=== PATIENT | male | born 1940 | race Caucasian/White ===

== ENCOUNTER 2018-01-28 16:12 | Outpatient (CLI) | payer OTHER, MEDICARE ==
[~2018-01-28] VITALS: Ht 172.7 cm; Wt 4184.5 kg
--- NOTE | ~2018-01-28 | HEMODYNAMI ---
PATIENT:VEGA CASE MEDICAL RECORD: [id number] : 44 LOCATION:[facility].2115 ADMISSION DATE: 01/28/18 Generatedon:01/29/201811:25 Patient name: VEGA CASE Patient #: [id number] SSN: : 1940 Date of study: 01/29/2018 Page: Of Hemodynamic Procedure Report Patient Data Patient Demographics Procedure consent was obtained First Name: VEGA Gender: Male Last Name: EVIE : 1940 Patient #: [id number] Age: 77 year(s) Race: Unknown Additional ID: [id number] Contact details [address]: [address] [place] [address] State: [place] City: [place] Zip code: [address] Past Medical History Allergies: No known allergies Admission Admission Data Admission Date: 01/28/2018 Admission Time: 16:12 Room #: [facility]5 Procedure Procedure Types Cath Procedure Diagnostic Procedure LHC LHC w/Coronaries PCI Procedure Coronary Stent Coronary Stent Initial Procedure Description Procedure Date Procedure Date: 01/29/2018 Procedure Start Time: 11:10 Procedure End Time: 11:25 Procedure Staff Name Function Luisito Veloz MD Performing Physician Mayte Hurley RT Monitor Waldo Romero RN Nurse Karime Ornelas RT Scrub Procedure Data Cath Procedure Fluoroscopy Diagnostic fluoroscopy Total fluoroscopy Time: 2.7 time: 2.7 min min Diagnostic fluoroscopy Total fluoroscopy dose: 760 dose: 760 mGy mGy Contrast Material Contrast Material Type Amount (ml) Isovue 300 82 Entry Location Entry Primary Successful Side Size Upsize Upsize Entry Closure Ivan ccessful Closure Location (Fr) 1 (Fr) 2 (Fr) Remarks Device Remarks Radial Right 6 Fr Mechanical artery Short Compression Estimated blood loss: 10 ml Diagnostic catheters Device Type Used For End Catheter Placement DIAGNOSTIC [place] 110cm 5 LV Angiography Fr catheter ([id number]) DIAGNOSTIC [place] 110cm 5 Left Coronary Fr catheter ([id number]) Angiography DIAGNOSTIC [place] 110cm 5 Right Coronary Fr catheter ([id number]) Angiography Procedure Complications No complications Procedure Medications Medication Administration Route Dosage Oxygen etCO2 Nasal cannula 2 l/min Heparin Flush Bag added to field 2 bags (1000units/500ml NS) 0.9% NaCl I.V. 100 ml/hr Lidocaine 2% added to field 20 Radial Cocktail added to field 1 syringe (Verapomil 2mg/Nitro 400mcg/Heparin 1500units) Fentanyl I.V. 50 mcg Versed I.V. 1 mg Fentanyl I.V. 50 mcg Versed I.V. 1 mg Radial Cocktail I.A. 1 syringe (Verapomil 2mg/Nitro 400mcg/Heparin 1500units) Heparin Bolus I.V. 4000 units Plavix P.O. 75 mg Hemodynamics Rest Heart Rate: 73 (bpm) Snapshots Pre Cath Intra NCS Post Cath Vital Signs Time Heart Resp SPO2 etCO2 NIBP (mmHg) Rhythm Pain Sedation Rate (ipm) (%) (mmHg) Status Level (bpm) 11:02:42 64 17 98 17.9 147/75(119) NSR 0 (11) 10(A) , No pain 11:07:08 61 17 100 23.9 158/72(119) NSR 0 (11) 10(A) , No pain 11:11:26 67 17 94 16.4 137/70(105) NSR 0 (11) 9(A) , No pain 11:15:44 64 17 94 28.3 127/61(87) NSR 0 (11) 9(A) , No pain 11:20:00 71 16 96 23.1 136/73(104) NSR 0 (11) 9(A) , No pain 11:23:01 71 17 96 14.9 136/81(124) NSR 0 (11) 9(A) , No pain Medications Time Medication Route Dose Verified Delivered Reason Not es Effectiveness by by 11:04:11 Oxygen etCO2 2 l/min Luisito Haas Per physician Nasal Roselia Romero RN cannula 11:04:19 Heparin Flush added 2 bags Luisito Haas used for Bag to Roselia Romero director dietetics department (1000units/500ml field NS) 11:04:27 0.9% NaCl I.V. 100 Luisito Haas Per physician ml/hr Roselia Romero RN 11:04:35 Lidocaine 2% added 20ml Luisito Haas used for to vial Roselia Romero RN procedure field 11:04:44 Radial Cocktail added 1 Luisito Haas used for (Verapomil to syringe Roselia Romero RN procedure 2mg/Nitro field 400mcg/Heparin 1500units) 11:05:26 Fentanyl I.V. 50 mcg Luisito Haas for sedation Roselia Romero RN 11:05:35 Versed I.V. 1 mg Luisito Haas for sedation Roselia Romero RN 11:10:22 Fentanyl I.V. 50 mcg Luisito Haas for sedation Roselia Romero RN 11:10:26 Versed I.V. 1 mg Luisito Haas for sedation Roselia Romero RN 11:12:49 Radial Cocktail I.A. 1 Luisito Jorge for (Verapomil syringe Roselia Veloz MD vasodilation 2mg/Nitro 400mcg/Heparin 1500units) 11:18:01 Heparin Bolus I.V. 4000 Luisito Haas for units Roselia Romero RN anticoagulation 11:21:54 Plavix P.O. 75 mg Luisito Haas for Roselia Romero RN antiplatelet therapy Procedure Log Time Note 10:49:26 Time tracking: Call back (After hours or weekends) 10:49:35 Plan of Care:Hemodynamics will remain stable., Cardiac rhythm will remain stable., Comfort level will be maintained., Respiratory function will remain adequate., Patient/ family verbilizes understanding of procedure., Procedure tolerated without complication., Recovers from procedure without complications.. 10:49:37 Waldo Romero RN sent for patient. Start room use. 11:01:29 Vital chart was started 11:02:09 Zero performed for pressure channel P1 11:02:13 Patient received from Pre/Post Procedure Room to CCL 1 Alert and oriented. Tansferred to table in Supine position. 11:02:14 Warm blankets applied, and roque hugger turned on for patient comfort. 11:02:15 Correct patient and procedure confirmed by team. 11:02:16 Signed procedure consent form obtained from patient. 11:02:17 ECG and BP/O2 sat monitors applied to patient. 11:02:18 Full Disclosure recording started 11:02:22 H&P Date Dictated: 01/29/2018 Within 30 days and on chart.. 11:02:23 Pre-procedure instructions explained to patient. 11:02:24 Pre-op teaching completed and patient verbalized understanding. 11:02:26 Family in patients room. 11:02:28 Patient NPO since Midnight. 11:02:45 Patient allergic to No known allergies 11:02:47 Is the patient allergic to Iodine/contrast media? No. 11:02:49 Is patient on blood thinner?Yes 11:02:52 ACC The patient was administered the following blood thiners within the last 24 hours: ACCPlavix 11:02:54 Patient diabetic? No. 11:03:28 Previous problem with sedation/anesthesia? No ? 11:03:29 Snore? Yes 11:03:30 Sleep apnea? Yes 11:03:31 Deviated septum? No 11:03:32 Opens mouth fully? Yes 11:03:33 Sticks out tongue? Yes 11:03:35 Airway obstruction? No ? 11:03:39 Dentures? Yes IN 11:03:55 Pre procedure: right dorsailis pedis pulse 2+ Normal; easily identifiable; not easily obliterated 11:03:56 Modified Zeb's test Ulnar < 7 seconds 11:03:58 Patient pain scale 0/10 ?. 11:04:09 IV patent on arrival in left forearm with 0.9% NaCl at O. 11:04:11 Oxygen 2 l/min etCO2 Nasal cannula was administered by Waldo Romero RN; Per physician; 11:04:13 Right Radial & Right Groin area was prepped with chlora-prep and draped in sterile fashion 11:04:14 Alarms reviewed by R. N. 11:04:15 Sharps counted by scrub and verified by R.N. 11:04:18 Use device set Radial Dx or PCI 11:04:19 Heparin Flush Bag (1000units/500ml NS) 2 bags added to field was administered by Waldo Romero RN; used for procedure; 11:04:19 ACIST Syringe (28638) opened to sterile field. 11:04:19 Medline Cath Pack ([id number]) opened to sterile field. 11:04:19 Bag Decanter (2002S) opened to sterile field. 11:04:20 DIAGNOSTIC WIRE .035 260cm J wire (130643) opened to sterile field. 11:04:20 ACIST Hand Control (05774) opened to sterile field. 11:04:21 ACIST Manifold (91192) opened to sterile field. 11:04:21 Tegaderm 4 x 4 (1626W) opened to sterile field. 11:04:22 MBrace Wrist Support ([id number]) opened to sterile field. 11:04:23 SHEATH 6FR Slender (61-6200) opened to sterile field. 11:04:27 0.9% NaCl 100 ml/hr I.V. was administered by Waldo Romero RN; Per physician; 11:04:35 Lidocaine 2% 20ml vial added to field was administered by Waldo Romero RN; used for procedure; 11:04:44 Radial Cocktail (Verapomil 2mg/Nitro 400mcg/Heparin 1500units) 1 syringe added to field was administered by Waldo Romero RN; used for procedure; 11:04:59 Final Timeout: patient, procedure, and site verified with staff and physician. All members of the team are in agreement. 11:05:01 Right Radial site verified by team. 11:05:06 Physical assessment completed. ASA score P 2 - A patient with mild systemic disease as per Luisito Veloz MD. 11:05:10 Sedation plan: IV Moderate Sedation Medication:Versed, Fentanyl 11:05:26 Fentanyl 50 mcg I.V. was administered by Waldo Romero RN; for sedation; 11:05:35 Versed 1 mg I.V. was administered by Waldo Romero RN; for sedation; 11:08:28 Zero performed for pressure channel P1 11:09:00 IV Extension Set opened to sterile field. 11:10:12 Procedure started. 11:10:16 Local anesthetic to right radial artery with Lidocaine 2% by Luisito Veloz MD.INITIAL ACCESS ONLY 11::22 Fentanyl 50 mcg I.V. was administered by Waldo Romero RN; for sedation; 11::26 Versed 1 mg I.V. was administered by Waldo Romero RN; for sedation; 11:10:53 Baseline sample Acquired. 11:12:20 A 6 Fr Short sheath was inserted into the Right Radial artery 11:12:49 Radial Cocktail (Verapomil 2mg/Nitro 400mcg/Heparin 1500units) 1 syringe I.A. was administered by Luisito Veloz MD; for vasodilation; 11:13:14 A DIAGNOSTIC [place] 110cm 5 Fr catheter ([id number]) was advanced over the wire and used for LV Angiography. 11:14:25 LV gram done using BENJAMIN 11:14:29 EF : 60 % 11:14:32 Injector settings: Ml/sec: 5, Volume: 15, 11:14:36 A DIAGNOSTIC [place] 110cm 5 Fr catheter (069640) was advanced over the wire and used for Left Coronary Angiography. 11:15:09 A DIAGNOSTIC [place] 110cm 5 Fr catheter (911668) was advanced over the wire and used for Right Coronary Angiography. 11:15:[address] [facility] PCI 11:15:37 INFLATOR Merit BasixCompak (NK5636) opened to sterile field. 11:15:41 CHOICE PT Extra Support 182cm wire ([id number]) opened to sterile field. 11:15:49 Catheter removed. 11:16:04 GUIDE 6FR EBU 3.5 catheter ([id number]) opened to sterile field. 11:17:16 6 Fr EBU 3.5 guide catheter was inserted over the wire 11:17:46 CHOICE PT ES wire advanced. 11:18:01 Heparin Bolus 4000 units I.V. was administered by Waldo Romero RN; for anticoagulation; 11:19:17 FEMSTOP Gold (M90622) opened to sterile field. 11:20:17 Place stent Inflation Number: 1 A INTEGRITY RX 3.5 x 12 stent ([id number]) was prepped and advanced across the Prox CX. The stent was deployed at 13 GIAN for 0:05 (min:sec). 11:20:31 Stent catheter was removed intact over wire. 11:20:32 Wire removed. 11:20:32 Guide catheter removed. 11:20:44 Sheath removed intact; hemostasis achieved with Mechanical Compression to the Right Radial artery. 11:20:45 Procedure ended.(Physican Out) 11:20:56 Fluoroscopy time 02.70 minutes. 11:21:00 Flurop Dose total: 760 11:21:00 Fluoroscopy dose: 760 mGy 11:21:03 Contrast amount:Isovue 300 82ml. 11:21:05 Sharps counted by scrub and verified by R.N. 11:21:08 TR band inflated with 12cc of air. 11:21:09 Insertion/operative site no bleeding no hematoma. 11:21:16 Post right radial artery:stable, clean and dry 11:21:20 Post Procedure Pulses reassessed and unchanged 11:21:22 Post-procedure physical assessment completed. ASA score P 2 - A patient with mild systemic disease as per Luisito Veloz MD. 11:21:26 Post procedure rhythm: unchanged. 11:21:29 Estimated blood loss: 10 ml 11:21:30 Post procedure instruction explained to patient.Patient verbalizes understanding. 11:21:31 Patient needs reinforcement of post procedure teaching. 11:21:54 Plavix 75 mg P.O. was administered by Waldo Romero RN; for antiplatelet therapy; 11:23:49 Procedure type changed to Cath procedure, Diagnostic procedure, LHC, LHC w/Coronaries, PCI procedure, Coronary Stent, Coronary Stent Initial 11:23:53 Procedure Complication : No complications 11:23:56 See physician's report for complete and final results. 11:24:22 TR BAND Standard ([id number]) opened to sterile field. 11:24:48 Procedure and supply charges have been captured, reviewed, submitted and are correct. 11:24:48 Vital chart was stopped 11:24:50 Report given to PCU. 11:24:53 Patient transfered to PCU with Bed. 11:25:05 Procedure ended. 11:25:05 Full Disclosure recording stopped 11:25:07 End room use (Document Last) Intervention Summary Intervention Notes Time ActionType Lesion and Equipment Action# Pressure Duration Attributes Used 11:20:17 Place stent Prox CX INTEGRITY RX 1 13 00:05 3.5 x 12 stent ([id number]) Device Usage Item Name Manufacture Quantity Catalog Number Hospital Part Current Mini mal Lot# / Charge Number Stock Stock Serial# Code ACIST Acist 1 10042 203824 596552 718565 20 Syringe Primary Data (60926) Systems Inc Medline Cath Medline 1 [id number] 549378 70283 769225 5 Pack ([id number]) Bag Decanter Microtek 1 334048 11250 283801 5 () Medical Inc. DIAGNOSTIC St Gurdeep 1 779072 504837 880336 157280 30 WIRE .035 260cm J wire (180844) ACIST Hand Acist 1 89103 754253 498896 550328 5 Control Medical (84973) Systems Inc ACIST Acist 1 08312 543271 295279 562642 5 Manifold Medical (62367) Systems Inc Tegaderm 4 x 3M 1 1626W 344780 941710 403975 5 4 (1626W) MBrace Wrist Advanced 1 140-0250-00 500692 10231 669229 5 Support Vascular (930923843) Dynamics SHEATH 6FR Terumo 1 [id number] 235854 232081 692401 5 Slender (80-1060) IV Extension Hospira 1 02621-99 947993 70847 543050 5 Set DIAGNOSTIC Terumo 1 40-9663 534931 486654 797535 5 [place] 110cm 5 Fr catheter (265381) INFLATOR Merit 1 OH1431 677782 308251 597833 15 [facility] Medical BasixCompak (ZZ4753) CHOICE PT [place] 1 [id number] 729873 011698 994048 5 Extra Scientific Support 182cm wire (2056519B5) GUIDE 6FR Medtronic 1 [id number] 524297 45597 480013 3 EBU 3.5 catheter ([id number]) FEMSTOP Gold St Gurdeep 1 Z59897 538722 890672 069498 5 (K27576) INTEGRITY RX Medtronic 1 [id number] 230989 520667 344000 5 [id number] 3.5 x 12 stent ([id number]) TR BAND Terumo 1 AHA99-MOM 584456 301999 763572 40 Standard ([id number]) Signature Audit [place] Stage Time Signature Unsigned Intra-Procedure 01/29/2018 Mayte 11:25:39 AM Counts RT(R) Signatures Monitor : Mayte Signature : Counts RT Date : Time : [facility] [address] [place] [address]
--- NOTE | ~2018-01-28 | DS ---
PATIENT:VEGA RAINEY :44 MEDICAL RECORD: [id number] DISCHARGE SUMMARY ADMISSION DATE: 01/28/18 DISCHARGE DATE: 01/29/18 DISCHARGE DIAGNOSES: 1. Unstable angina. 2. Coronary artery disease. 3. PTCA stent of left circumflex this admission with concomitant disease RCA. 4. Hypertension. 5. Hyperlipidemia. HOSPITAL COURSE: Mr. Rainey presents with anginal symptomatology, found to have 2-vessel disease of the left circumflex and RCA, underwent successful PTCA stent of the left circumflex. He was discharged home with the addition of aspirin and Plavix to his medical regimen. We will follow up with PTCA stent of the RCA next week. TRANSINT:[id number] Voice Confirmation ID: [id number] DOCUMENT ID: [id number] AMARILYS RODRIGUEZ MD CC: [id number] DICTATION DATE: 01/29/18 1126 FINANCIAL AID ADVISOR: 01/30/18 0112 DEP CLI 01/29/18 [place] [id number] [place] [address]
--- NOTE | ~2018-01-28 | HP ---
PATIENT: VEGA CASE MEDICAL RECORD: [id number] ACCOUNT: [id number] LOCATION:[facility] : 44 ADMISSION DATE: 01/28/18 PCP: No PCP HISTORY AND PHYSICAL EXAMINATION DATE OF ADMISSION: 01/29/2018 DIAGNOSES: 1. Unstable angina. 2. Coronary artery disease. 3. Hypertension. 4. Hypothyroidism, on replacement. HISTORY OF PRESENT ILLNESS: This is a gentleman with a past history of coronary artery disease, standalone PTCA in 1997, who began having more and more chest pain over the past few weeks. It escalated last night. His troponin is normal. He did not have a myocardial infarction with that. He has continued to have chest pain this morning. PHYSICAL EXAMINATION: GENERAL APPEARANCE: Well-nourished, well-developed, appears stated age. Level of distress, comfortable. PSYCHIATRIC: Mental status, alert, normal affect. Orientation, oriented to time, place and person. EYES: Lids and conjunctiva, noninjected. No discharge, no pallor. ENT: Lips, teeth, gums, normal dentition. Oropharynx, no cyanosis, no pallor. NECK: Carotid arteries, bilateral normal upstroke, no bruits, no thrills. JUGULAR VEINS: No jugular venous pressure or distention. CERVICAL LYMPH NODES: Nontender, nonenlarged. THYROID: Not enlarged. Nontender. No nodules. LUNGS: Respiratory effort, unlabored. CHEST: Normal curvature. No thoracic deformity. No chest wall tenderness. Percussion, resonant. Auscultation, clear. No wheezes, no rales, no rhonchi. CARDIOVASCULAR: Precordial exam, nondisplaced. No heaves or pericardial thrills. Rate and rhythm, regular. Heart sounds, normal S1, normal S2. No S3, no gallop, no rub. Systolic murmur, not heard. Diastolic murmur, not heard. EXTREMITIES: No cyanosis, no edema. Peripheral pulses, full and equal in all extremities, except as noted. No bruits appreciated. ABDOMEN: Soft, nondistended. Normal aorta. No bruit. Nontender. No masses. Liver, nontender, no hepatomegaly. Spleen, nontender, no splenomegaly. MUSCULOSKELETAL: No joint tenderness. No joint swelling. No erythema. NEUROLOGICAL: Normal gait, normal strength, normal tone. SKIN: Warm and dry. REVIEW OF SYSTEMS: The patient reports easy bruising but reports no swollen glands. The patient reports no fever, no night sweats, no significant weight gain, no significant weight loss. No significant exercise tolerance. The patient reports no dry eyes, no irritation, no vision change. Patient reports no difficulty hearing and no ear pain. Patient reports no frequent nose bleeds or nose and sinus problems. Patient reports on arm pain on exertion. No shortness of breath while lying down. No history of heart murmur. Patient reports no cough, no wheezing or coughing up blood. Patient reports no abdominal pain, no vomiting. Normal appetite. No diarrhea and not vomiting blood. No nausea and no constipation. Patient reports no incontinence. No difficulty urinating. No hematuria. No increased frequency. Patient reports HISTORY AND PHYSICAL [id number] CASE,GLENDALL no muscle aches. No weakness, no arthralgias, no back pain. No swelling of the extremities. Patient reports no abnormal mole, no jaundice, no rashes. Reports no loss of consciousness. No weakness and no numbness. No seizures, dizziness, or headaches. The patient reports no depression, no sleep disturbance, feeling safe in a relationship and no alcohol abuse. Patient reports on fatigue. Reports no runny nose or sinus pressure. No itching, no hives, and no frequent sneezing. OVERALL IMPRESSION: Unstable angina with a past history of coronary artery disease, most likely he has recurrent hemodynamically significant disease. We will proceed with coronary angiography. Further care depends upon findings of the angiography. TRANSINT:[id number] Voice Confirmation ID: [id number] DOCUMENT ID: [id number] AMARILYS RODRIGUEZ MD at 1520 CC: [id number] DICTATION DATE: 01/29/18 0900 LABEL SEWER: 01/29/18 1052 DEP CLI 01/29/18 [facility] [address] [place] [id number]
--- NOTE | ~2018-01-28 | OP ---
PATIENT NAME: VEGA CASE MEDICAL RECORD: [id number] :44 LOCATION:[facility] ADMISSION DATE: SURGEON: AMARILYS RODRIGUEZ MD DATE OF OPERATION: 01/29/2018 PROCEDURES: 1. PTCA and stent of left circumflex. 2. Left heart catheterization. 3. Selective coronary angiography. 4. Left ventriculogram. INDICATION: Angina and coronary artery disease. PROCEDURE IN DETAIL: After informed consent was obtained and after detailed explanation of risks, benefits as well as alternative therapies, the patient elected to proceed with angiogram and angioplasty. The right radial area was prepped and draped in normal sterile fashion. Right radial artery was cannulated via modified Seldinger technique with the placement of 6-Wolof sheath. All catheters exchanged through this sheath. FINDINGS: The left ventriculogram was performed in standard 30-degree BENJAMIN view, reveals good cardiac wall motion throughout all segments. Overall ejection fraction estimated 60%. SELECTIVE CORONARY ANGIOGRAPHY: 1. Left main is with no significant angiographic disease. 2. Left anterior descending has moderate irregularities, at least 50% stenosis in the mid vessel, but it does not appear that there is any flow limiting stenosis. 3. The left circumflex has 70+ percent stenosis at the ostium. 4. The right coronary has a 70+ percent stenosis in the mid vessel. PTCA AND STENT OF THE LEFT CIRCUMFLEX: The stent used is a 3.5 x 12-mm Integrity. Result was 0% residual stenosis. OVERALL IMPRESSION: Successful PTCA and stent of the left circumflex going from 75% initial stenosis to 0% residual. PLAN: Plan for PTCA and stent of the RCA in the near future. TRANSINT:[id number] Voice Confirmation ID: [id number] DOCUMENT ID: [id number] AMARILYS RODRIGUEZ MD at 1520 CC: [id number] DICTATION DATE: 01/29/18 1128 SUPERVISOR PAINT DEPARTMENT: 01/29/[address] [facility] CLI 01/29/18 [place] [id number]
[2018-01-28] MEDS ORDERED: FUROSEMIDE20 MG PO (16:36)
[2018-01-28] MEDS ORDERED: SYNTHROID25 MCG PO (16:37)
[2018-01-28] MEDS ORDERED: ASPIRIN81 MG PO (16:38)
[2018-01-28] MEDS ORDERED: NITROSTAT0.4 MG SL (16:38)
[2018-01-28] MEDS ORDERED: LISINOPRIL2.5 MG PO (16:38)
[2018-01-28 17:01] LABS: BASOPHILS 0.5 % (0-2); EOSINOPHILS 5.1 % (0-7); HEMATOCRIT 40.3 % (42.0-54.0); HEMOGLOBIN 14.4 g/dL (13.5-17.5); IMMATURE GRANULOCYTES 0.2 % (0-5); LYMPHOCYTES 22.1 % (15-50); MCHC 35.7 g/dL (31.0-37.0); MCV 89.6 fL (80.0-100.0); MEAN PLATELET VOLUME 9.6 fL (7.4-10.4); MONOCYTES 9.1 % (2-11); PLATELET COUNT 147 10x3/uL (130-400); WBC 6.6 10x3/uL (4.8-10.8)
[2018-01-28 18:43] LABS: ALBUMIN 3.5 g/dL (3.4-5.0); ALKALINE PHOSPHATASE 110 U/L (46-116); ALT (SGPT) 22 U/L (10-68); CALC OSMOLALITY 284 mosm/kg (275-300); CARBON DIOXIDE 25.3 mmol/L (21.0-32.0); CHLORIDE - SERUM 105 mmol/L (98-107); CREATININE - SERUM 1.1 mg/dL (0.6-1.3); GLUCOSE 89 mg/dL (74-106); POTASSIUM - SERUM 3.7 mmol/L (3.5-5.1); PROTEIN - SERUM 7.3 g/dL (6.4-8.2); SODIUM 142 mmol/L (136-145); UREA NITROGEN 20 mg/dL (7-18); eGFR NON AFRICAN AMERICAN 69 mL/min (90-120)
[2018-01-28 18:49] LABS: CREATINE KINASE 136 UL (21-232); TROPONIN-I 0.017 ng/mL (0.000-0.060)
[2018-01-28 21:32] VITALS: BP 154/93; Ht 172.7 cm; Wt 4184.5 kg
[2018-01-29] VITALS: BP 140/59
[2018-01-29 04:00] VITALS: BP 131/67
[2018-01-29 08:07] VITALS: BP 139/74
[2018-01-29 09:47] LABS: BASOPHILS 0.4 % (0-2); EOSINOPHILS 6.8 % (0-7); HEMATOCRIT 40.2 % (42.0-54.0); HEMOGLOBIN 14.2 g/dL (13.5-17.5); IMMATURE GRANULOCYTES 0.4 % (0-5); LYMPHOCYTES 19.2 % (15-50); MCH 31.8 pg (26.0-34.0); MCHC 35.3 g/dL (31.0-37.0); MCV 89.9 fL (80.0-100.0); MEAN PLATELET VOLUME 9.4 fL (7.4-10.4); MONOCYTES 7.2 % (2-11); PLATELET COUNT 131 10x3/uL (130-400); RBC 4.47 10x6/uL (4.20-6.10); WBC 5.3 10x3/uL (4.8-10.8)
[2018-01-29 09:50] LABS: CALC OSMOLALITY 282 mosm/kg (275-300); CALCIUM 8.8 mg/dL (8.5-10.1); CARBON DIOXIDE 27.3 mmol/L (21.0-32.0); CHLORIDE - SERUM 106 mmol/L (98-107); CREATININE - SERUM 0.9 mg/dL (0.6-1.3); GLUCOSE 99 mg/dL (74-106); POTASSIUM - SERUM 4.1 mmol/L (3.5-5.1); SODIUM 141 mmol/L (136-145); UREA NITROGEN 19 mg/dL (7-18); eGFR NON AFRICAN AMERICAN 87 mL/min (90-120)
[2018-01-29 11:32] VITALS: BP 124/69
[2018-01-29] MEDS ORDERED: BAYER CHEWABLE81 MG PO (14:01)
[2018-01-29] MEDS ORDERED: PLAVIX75 MG PO (14:01)
[2018-01-29 15:39] VITALS: BP 114/48
== END 2018-01-29 16:43 | disposition home or self-care (01) ==
LOC: D.ER 16:12 → D.OPS 16:12 → EDSTATUS 18:02 → D.M2 19:14 → D.OPS 01-29 16:43
PROVIDERS: Family Medicine; Internal Medicine Interventional Cardiology
DX: I25.110 Atherosclerotic heart disease of native coronary artery with unstable angina pectoris (principal); I10 Essential (primary) hypertension; E03.9 Hypothyroidism, unspecified

== ENCOUNTER 2018-01-31 02:28 | Observation (INO) | payer MEDICARE ==
[2018-01-31] VITALS (7 sets, daily range): BP systolic 93–132; BP diastolic 42–62; Ht 172.7 cm; Wt 86.2 kg
[~2018-01-31] VITALS: Ht 172.7 cm; Wt 86.2 kg
--- NOTE | ~2018-01-31 | MORECARE ---
CASE MANAGEMENT DISCHARGE SUMMARY PATIENT: VEGA CASE UNIT: [id number] ADM DATE: 01/31/18 AGE: 77 : 42 SEX: M ROOM/BED: D.2127 AUTHOR: ALEXANDER RUSSELL PHYSICIAN: REFERRING PHYSICIAN: AMARILYS RODRIGUEZ MD DATE OF SERVICE: 02/02/18 Discharge Plan Patient Name: VEGA CASE [facility] 1940 Planned Disposition: Home Anticipated Discharge Date: 01/31/18 Discharge Date: 01/31/2018 Expected LOS: 1 Initial Reviewer: [email or web address] Initial Review Date: 02/02/2018 Generated: 02/02/18 8:21 am Patient Name: VEGA CASE Page [id number] at 0722 All edits/amendments must be made on the electronic document DICTATION DATE: 02/02/18720 BUTTON RECLAIMER: PHILIP 02/02/18720 RPT#: [id number] DC DATE:01/31/18 STATUS: DIS IN [facility] [address] [place] [address] END OF REPORT
--- NOTE | ~2018-01-31 | HP ---
PATIENT: VEGA RAINEY MEDICAL RECORD: [id number] ACCOUNT: [id number] LOCATION:D. D.2127 : 44 ADMISSION DATE: 01/31/18 PCP: No PCP HISTORY AND PHYSICAL EXAMINATION ADMITTING DIAGNOSES: 1. Angina. 2. Coronary artery disease. 3. Recent percutaneous transluminal coronary angioplasty stent of the left circumflex with concomitant disease to right coronary artery. 4. Hypertension. HISTORY OF PRESENT ILLNESS: Mr. Rainey presents with recurrent angina. He presented earlier in the week, found to have disease of the circumflex and RCA, underwent successful PTCA stent of the circumflex, was set to come back on the for RCA PTCA stent. He had continued angina and came through the Emergency Room. PHYSICAL EXAMINATION: GENERAL APPEARANCE: Well-nourished, well-developed, appears stated age. Level of distress, comfortable. PSYCHIATRIC: Mental status, alert, normal affect. Orientation, oriented to time, place and person. EYES: Lids and conjunctiva, noninjected. No discharge, no pallor. ENT: Lips, teeth, gums, normal dentition. Oropharynx, no cyanosis, no pallor. NECK: Carotid arteries, bilateral normal upstroke, no bruits, no thrills. JUGULAR VEINS: No jugular venous pressure or distention. CERVICAL LYMPH NODES: Nontender, nonenlarged. THYROID: Not enlarged. Nontender. No nodules. LUNGS: Respiratory effort, unlabored. CHEST: Normal curvature. No thoracic deformity. No chest wall tenderness. Percussion, resonant. Auscultation, clear. No wheezes, no rales, no rhonchi. CARDIOVASCULAR: Precordial exam, nondisplaced. No heaves or pericardial thrills. Rate and rhythm, regular. Heart sounds, normal S1, normal S2. No S3, no gallop, no rub. Systolic murmur, not heard. Diastolic murmur, not heard. EXTREMITIES: No cyanosis, no edema. Peripheral pulses, full and equal in all extremities, except as noted. No bruits appreciated. ABDOMEN: Soft, nondistended. Normal aorta. No bruit. Nontender. No masses. Liver, nontender, no hepatomegaly. Spleen, nontender, no splenomegaly. MUSCULOSKELETAL: No joint tenderness. No joint swelling. No erythema. NEUROLOGICAL: Normal gait, normal strength, normal tone. SKIN: Warm and dry. OVERALL IMPRESSION: Angina with significant disease of the right coronary artery. We will proceed with transcatheter revascularization of the right coronary artery. TRANSINT:[id number] Voice Confirmation ID: [id number] DOCUMENT ID: [id number] HISTORY AND PHYSICAL [id number] VEGA RAINEY JEFFREY MD at 1457 CC: [id number] DICTATION DATE: 01/31/18 1013 OLERICULTURIST: 01/31/18 1018 DIS IN 01/31/18 [facility] [address] [place] [address]
--- NOTE | ~2018-01-31 | HEMODYNAMI ---
PATIENT:VEGA CASE MEDICAL RECORD: [id number] : 44 [id number] ADMISSION DATE: 01/31/18 Generatedon:01/31/201815:17 Patient name: VEGA CASE Patient #: [id number] SSN: : 1940 Date of study: 01/31/2018 Page: Of Hemodynamic Procedure Report Patient Data Patient Demographics Procedure consent was obtained First Name: VEGA Gender: Male Last Name: EVIE : 1940 Patient #: [id number] Age: 77 year(s) Race: Unknown Additional ID: [id number] Contact details Address: [address] [place] [address] State: [place] City: [place] Zip code: [address] Past Medical History Allergies: No known allergies Admission Admission Data Admission Date: 01/31/2018 Admission Time: 4:23 Admit Source: Emergency department Room #: D.2127 Lab Results Lab Result Date: 01/31/2018 Lab Result Time: 2:45 Biochemistry Name Units Result Min Max BUN mg/dl 19 --(----)*- 7 18 Creatinine mg/dl 0.9 --(-*--)-- 0.6 1.3 CBC Name Units Result Min Max Hematocrit % 39 *-(----)-- 42 54 Hemoglobin g/dl 13.8 --(*---)-- 13.5 17.5 Procedure Procedure Types Cath Procedure Diagnostic Procedure LHC Coronaries only PCI Procedure Coronary Stent Coronary Stent Initial Procedure Description Procedure Date Procedure Date: 01/31/2018 Procedure Start Time: 15:05 Procedure End Time: 15:16 Procedure Staff Name Function Luisito Veloz MD Performing Physician Sam Liu RT Monitor Karime Ornelas RT Scrub Georgie Hogan RN Nurse Procedure Data Cath Procedure Fluoroscopy Diagnostic fluoroscopy Total fluoroscopy Time: 2.1 time: 2.1 min min Diagnostic fluoroscopy Total fluoroscopy dose: 278 dose: 278 mGy mGy Contrast Material Contrast Material Type Amount (ml) Isovue 300 56 Entry Location Entry Primary Successful Side Size Upsize Upsize Entry Closure Succes sful Closure Location (Fr) 1 (Fr) 2 (Fr) Remarks Device Remarks Femoral Right 6 Fr Exoseal artery Short Estimated blood loss: 10 ml Diagnostic catheters Device Type Used For End Catheter Placement DIAGNOSTIC JL 4.0 5Fr Procedure catheter ([id number]) Procedure Complications No complications Procedure Medications Medication Administration Route Dosage Oxygen etCO2 Nasal cannula 2 l/min Lidocaine 2% added to field 20 Heparin Flush Bag added to field 2 bags (1000units/500ml NS) 0.9% NaCl I.V. 100 ml/hr Versed I.V. 1 mg Fentanyl I.V. 50 mcg Heparin Bolus I.V. 4000 units Versed I.V. 1 mg Fentanyl I.V. 50 mcg Hemodynamics Rest HGB: 13.8 (g/dl) Heart Rate: 58 (bpm) Snapshots Pre Cath Intra NCS Post Cath Vital Signs Time Heart Resp SPO2 etCO2 NIBP (mmHg) Rhythm Pain Sedation Rate (ipm) (%) (mmHg) Status Level (bpm) 15:03:05 58 22 99 33.1 143/63(100) NSR 0 (11) 10(A) , No pain 15:07:25 64 12 94 0 127/53(105) NSR 0 (11) 9(A) , No pain 15:11:41 75 14 93 8.2 127/59(106) NSR 0 (11) 9(A) , No pain 15:16:34 72 14 93 0 133/64(111) NSR 0 (11) 10(A) , No pain Medications Time Medication Route Dose Verified Delivered Reason Notes Effectiveness by by 15:01:22 Oxygen etCO2 2 Luisito Feie used for Nasal l/min Roselia Hogan RN procedure cannula 15:01:27 Lidocaine 2% added 20ml Luisito Jorge for local to vial Roselia Veloz MD anesthetic field 15:01:33 Heparin Flush added 2 Luisito Luisito used for Bag to bags Roselia Veloz MD procedure (1000units/500ml field NS) 15:01:43 0.9% NaCl I.V. 100 Ulisito Buffie Per physician ml/hr Roselia Hogan RN 15:03:44 Versed I.V. 1 mg Luisitoharshad Miramontesie for sedation Roselia Hogan RN 15:03:53 Fentanyl I.V. 50 Luisito Jacques for sedation mcg Roselia Hogan RN 15:08:46 Heparin Bolus I.V. 4000 Luisito Jacques for verif ied units Roselia Hogan RN anticoagulation with dr veloz 15:11:06 Versed I.V. 1 mg Luisito Jacques for sedation Roselia Hogan RN 15:11:09 Fentanyl I.V. 50 Luisito Jacques for sedation mcg Roselia Hogan RN Procedure Log Time Note 14:30:22 Karime Ornelas RT(R) sent for patient. Start room use. 14:50:56 Informed consent obtained and on chart 14:51:01 Admit Source: Emergency department 14:51:06 Diagnostic Cath status Elective 14:51:28 Time tracking: Call back (After hours or weekends) 14:51:36 Plan of Care:Hemodynamics will remain stable., Cardiac rhythm will remain stable., Comfort level will be maintained., Respiratory function will remain adequate., Patient/ family verbilizes understanding of procedure., Procedure tolerated without complication., Recovers from procedure without complications.. 14:51:40 Patient received from Med II to CCL 1 Alert and oriented. Tansferred to table in Supine position. 14:51:41 Warm blankets applied, and roque hugger turned on for patient comfort. 14:51:41 Correct patient and procedure confirmed by team. 14:51:42 ECG and BP/O2 sat monitors applied to patient. 14:51:43 Pre-procedure instructions explained to patient. 14:51:43 Pre-op teaching completed and patient verbalized understanding. 14:51:44 Family in waiting room. 14:51:45 Patient NPO since Midnight. 14:51:51 Patient allergic to No known allergies 14:52:03 H&P Date Dictated: 01/31/2018 Within 30 days and on chart.. 14:52:37 Is the patient allergic to Iodine/contrast media? No. 14:52:37 Is patient on blood thinner?Yes 14:52:40 ACC The patient was administered the following blood thiners within the last 24 hours: ACCAspirin, ACCPlavix 14:52:42 Patient diabetic? No. 14:52:44 Previous problem with sedation/anesthesia? No ? 14:52:45 Snore? Yes 14:52:46 Sleep apnea? Yes 14:52:46 Deviated septum? No 14:52:47 Opens mouth fully? Yes 14:52:48 Sticks out tongue? Yes 14:52:50 Airway obstruction? No ? 14:52:55 Dentures? Yes in tight 14:53:47 Modified Zeb's test Ulnar < 7 seconds 14:53:49 Patient pain scale 0/10 ?. 14:54:02 IV patent on arrival in left forearm with 0.9% NaCl at [facility]. 14:54:04 Lab results completed and on chart. 14:54:38 Lab Result : BUN 19 mg/dl 14:54:38 Lab Result : Creatinine 0.9 mg/dl 14:54:38 Lab Result : Hemoglobin 13.8 g/dl 14:54:38 Lab Result : Hematocrit 39 % 14:54:51 Right groin area was prepped with chlora-prep and draped in sterile fashion 14:54:58 Alarms reviewed by R. N. 14:54:58 Sharps counted by scrub and verified by R.N. 15:01:22 Oxygen 2 l/min etCO2 Nasal cannula was administered by Georgie Hogan RN; used for procedure; 15:01:27 Lidocaine 2% 20ml vial added to field was administered by Luisito Veloz MD; for local anesthetic; 15:01:33 Heparin Flush Bag (1000units/500ml NS) 2 bags added to field was administered by Luisito Veloz MD; used for procedure; 15:01:43 0.9% NaCl 100 ml/hr I.V. was administered by Georgie Hogan RN; Per physician; 15:01:46 Vital chart was started 15:02:19 ACIST Syringe (26324) opened to sterile field. 15:02:20 Bag Decanter () opened to sterile field. 15:02:20 Medline Cath Pack ([id number]) opened to sterile field. 15:02:22 ACIST Hand Control (03643) opened to sterile field. 15:02:22 ACIST Manifold (25263) opened to sterile field. 15:02:25 Tegaderm 4 x 4 (1626W) opened to sterile field. 15:02:27 DIAGNOSTIC WIRE .035 260cm J wire (802330) opened to sterile field. 15:02:52 GUIDE 6FR AR 2.0 catheter ([id number]) opened to sterile field. 15:02:53 INFLATOR Merit BasixCompak (IV0505) opened to sterile field. 15:02:54 SHEATH 6FR Olympia (PNO758) opened to sterile field. 15:03:01 CHOICE PT Extra Support 182cm wire ([id number]) opened to sterile field. 15:03:06 Baseline sample Acquired. 15:03:10 Rhythm: sinus rhythm 15:03:11 Full Disclosure recording started 15:03:16 Physician arrived 15::16 --------ALL STOP TIME OUT------ 15::16 Final Timeout: patient, procedure, and site verified with staff and physician. All members of the team are in agreement. 15:03:17 Right groin site verified by team. 15:03:20 Physical assessment completed. ASA score P 2 - A patient with mild systemic disease as per Luisito Veloz MD. 15:03:22 Sedation plan: IV Moderate Sedation Medication:Versed, Fentanyl 15:03:26 Pre procedure: right dorsailis pedis pulse 2+ Normal; easily identifiable; not easily obliterated 15:03:44 Versed 1 mg I.V. was administered by Georgie Hogan RN; for sedation; 15::53 Fentanyl 50 mcg I.V. was administered by Georgie Hogan RN; for sedation; 15:04:32 Zero performed for pressure channel P1 15:05:56 Procedure started. 15:05:59 Local anesthetic to right femoral artery with Lidocaine 2% by Luisito Veloz MD.INITIAL ACCESS ONLY 15:06:08 A 6 Fr Short sheath was inserted into the Right Femoral artery 15:08:04 6 Fr AR 2 guide catheter was inserted over the wire 15:08:21 choice pt es wire advanced. 15:08:46 Heparin Bolus 4000 units I.V. was administered by Georgie Hogan RN; for anticoagulation; verified with dr veloz 15:08:55 Wire advanced across lesion. 15:10:51 Place stent Inflation Number: 1 A INTEGRITY RX 4.0 x 12 stent ([id number]) was prepped and advanced across the Mid RCA. The stent was deployed at 15 GIAN for 0:10 (min:sec). 15:11:06 Versed 1 mg I.V. was administered by Georgie Hogan RN; for sedation; 15:11:09 Fentanyl 50 mcg I.V. was administered by Georgie Hogan RN; for sedation; 15:11:33 Stent catheter was removed intact over wire. 15:11:34 Wire removed. 15:11:35 Guide catheter removed. 15:11:43 A DIAGNOSTIC JL 4.0 5Fr catheter ([id number]) was advanced over the wire and used for Procedure. 15:11:50 EXOSEAL 6Fr (EX600) opened to sterile field. 15:11:56 LCA angiography performed. 15:12:29 Catheter removed. 15:12:38 Sheath removed intact; hemostasis achieved with Exoseal to the Right Femoral artery. 15:12:40 Procedure ended.(Physican Out) 15:12:55 Fluoroscopy time 02.10 minutes. 15:13:07 Flurop Dose total: 278 15:13:07 Fluoroscopy dose: 278 mGy 15:13:10 Contrast amount:Isovue 300 56ml. 15:13:11 Sharps counted by scrub and verified by R.N. 15:13:12 Insertion/operative site no bleeding no hematoma. 15:13:15 Post-op/insertion site Right Femoral artery dressed using a 4 x 4 and Tegaderm. 15:13:47 Post Procedure Pulses reassessed and unchanged 15:13:53 Post-procedure physical assessment completed. ASA score P 2 - A patient with mild systemic disease as per Luisito Veloz MD. 15:13:55 Post procedure rhythm: unchanged. 15:14:03 Estimated blood loss: 10 ml 15:14:04 Post procedure instruction explained to patient.Patient verbalizes understanding. 15:14:05 Patient needs reinforcement of post procedure teaching. 15:14:16 Procedure type changed to Cath procedure, Diagnostic procedure, LHC, Coronaries only, PCI procedure, Coronary Stent, Coronary Stent Initial 15:15:59 Procedure and supply charges have been captured, reviewed, submitted and are correct. 15:16:01 Procedure Complication : No complications 15:16:03 Vital chart was stopped 15:16:03 See physician's report for complete and final results. 15:16:06 Report given to PCU. 15:16:08 Patient transfered to PCU with Stretcher. 15:16:10 Procedure ended. 15:16:10 Full Disclosure recording stopped 15:16:13 End room use (Document Last) Intervention Summary Intervention Notes Time ActionType Lesion and Equipment Action# Pressure Duration Attributes Used 15:10:51 Place stent Mid RCA INTEGRITY RX 1 15 00:10 4.0 x 12 stent ([id number]) Device Usage Item Name Manufacture Quantity Catalog Number Hospital Part Current Mini mal Lot# / Charge Number Stock Stock Serial# Code ACIST Acist 1 67942 833964 708335 888090 20 Syringe Medical (49461) Systems Inc Bag Decanter Microtek 1 2001S 019234 96279 319023 5 (2001S) Medical Inc. Medline Cath Medline 1 [id number] 107015 10843 642033 5 Pack ([id number]) ACIST Hand Acist 1 21429 415377 941277 005698 5 Control Medical (70280) Systems Inc ACIST Acist 1 16504 968473 823134 614626 5 Manifold Medical (41087) Systems Inc Tegaderm 4 x 3M 1 1626W 006886 093479 179607 5 4 (1626W) DIAGNOSTIC St Gurdeep 1 380904 239867 223246 556019 30 WIRE .035 260cm J wire (536098) GUIDE 6FR AR Medtronic 1 [id number] 554360 48267 470048 1 2.0 catheter ([id number]) INFLATOR TapRoot Systems 1 IY5920 138581 423433 127067 15 TapRoot Systems Medical BasixCompak (KI3709) SHEATH 6FR Terumo 1 GFX990 282234 894584 206598 40 Olympia (FOR551) CHOICE PT Dixon 1 [id number] 122650 341736 363168 5 Extra Scientific Support 182cm wire ([id number]) INTEGRITY RX Medtronic 1 [id number] 769638 510808 822696 5 [id number] 4.0 x 12 stent ([id number]) DIAGNOSTIC Cardinal 1 [id number] 801575 320421 639569 10 JL 4.0 5Fr Health catheter (117294A) EXOSEAL 6Fr Cardinal 1 EX600 113390 949835 078328 10 (EX600) Health Signature Audit Gilbert Stage Time Signature Unsigned Intra-Procedure 01/31/2018 Sam Liu 3:17:49 PM RT(R) Signatures Monitor : Sam Liu RT Signature : Date : Time : [address] [place] [address]
--- NOTE | ~2018-01-31 | OP ---
PATIENT NAME: VEGA CASE MEDICAL RECORD: [id number] :44 LOCATION:D.M2 D.2127 ADMISSION DATE:01/31/18 SURGEON: AMARILYS RODRIGUEZ MD DATE OF OPERATION: 01/31/2018 PROCEDURES: 1. Percutaneous transluminal coronary angioplasty stent right coronary artery. 2. Selective coronary angiography. INDICATION: Angina and coronary artery disease. PROCEDURE: After informed consent was obtained, after detailed description of risks, benefits as well as alternative therapies, the patient elected to proceed with angiogram and angioplasty. The right femoral area was prepped and draped in normal sterile fashion. Right femoral artery was cannulated via modified Seldinger technique with placement of 6-Bhutanese sheath. All catheters exchanged through this sheath. FINDINGS: Previously placed stent in the circumflex is widely patent. The right coronary has a 70% to 80% stenosis in the mid vessel. This was addressed with a 4.0 x 12 mm Integrity stent. Result was 0% residual stenosis. OVERALL IMPRESSION: Successful PTCA stent of the right coronary artery going from 70% to 80% initial stenosis to 0% residual. TRANSINT:[id number] Voice Confirmation ID: [id number] DOCUMENT ID: [id number] AMARILYS RODRIGUEZ MD at 1457 CC: [id number] DICTATION DATE: 01/31/18 1516 LIVING NURSE: 01/31/18 2157 DIS IN 01/31/18 [place] [id number] [place] [id number]
--- NOTE | ~2018-01-31 | DS ---
PATIENT:VEGA CASE :44 MEDICAL RECORD: [id number] DISCHARGE SUMMARY ADMISSION DATE: 01/31/18 DISCHARGE DATE: 01/31/18 DISCHARGE DIAGNOSES: 1. Angina. 2. Coronary artery disease. 3. Percutaneous transluminal coronary angioplasty stent right coronary artery this admission. HOSPITAL COURSE: This is a gentleman who presents with anginal symptomatology, has known disease of the RCA, underwent successful PTCA stent of the RCA, discharged home with no change in medications as he is already on aspirin and Plavix. He will follow up with [facility] in 1 month. TRANSINT:[id number] Voice Confirmation ID: [id number] DOCUMENT ID: [id number] AMARILYS RODRIGUEZ MD at 1457 CC: [id number] DICTATION DATE: 01/31/18 151 LOBBY ATTENDANT: 01/31/181 DIS IN 01/31/18 [facility] [address] [place] [address]
[~2018-01-31 02:28] MED LIST: ASPIRIN81 MG PO; BAYER CHEWABLE81 MG PO; FUROSEMIDE20 MG PO; LISINOPRIL2.5 MG PO; NITROSTAT0.4 MG SL; PLAVIX75 MG PO; SYNTHROID25 MCG PO
[2018-01-31 02:51] LABS: BASOPHILS 0.2 % (0-2); EOSINOPHILS 1.4 % (0-7); HEMOGLOBIN 13.8 g/dL (13.5-17.5); IMMATURE GRANULOCYTES 0.2 % (0-5); LYMPHOCYTES 8.6 % (15-50); MCH 31.7 pg (26.0-34.0); MCHC 35.4 g/dL (31.0-37.0); MCV 89.7 fL (80.0-100.0); MEAN PLATELET VOLUME 9.6 fL (7.4-10.4); MONOCYTES 4.8 % (2-11); NEUTROPHILS 84.8 % (40-80); PLATELET COUNT 152 10x3/uL (130-400); RBC 4.35 10x6/uL (4.20-6.10); RDW 12.8 % (11.5-14.5)
[2018-01-31 03:05] LABS: ALBUMIN 3.2 g/dL (3.4-5.0); ALKALINE PHOSPHATASE 101 U/L (46-116); ALT (SGPT) 27 U/L (10-68); BILIRUBIN - TOTAL 1.77 mg/dL (0.2-1.3); CALC OSMOLALITY 281 mosm/kg (275-300); CALCIUM 8.7 mg/dL (8.5-10.1); CARBON DIOXIDE 25.6 mmol/L (21.0-32.0); CHLORIDE - SERUM 105 mmol/L (98-107); CREATININE - SERUM 0.9 mg/dL (0.6-1.3); GLUCOSE 133 mg/dL (74-106); POTASSIUM - SERUM 4.1 mmol/L (3.5-5.1); PROTEIN - SERUM 6.7 g/dL (6.4-8.2); SODIUM 139 mmol/L (136-145); UREA NITROGEN 19 mg/dL (7-18); eGFR NON AFRICAN AMERICAN 87 mL/min (90-120)
[2018-01-31 03:22] LABS: CREATINE KINASE 87 UL (21-232)
[2018-01-31 03:24] LABS: TROPONIN-I 0.179 ng/mL (0.000-0.060)
== END 2018-01-31 20:15 | disposition home or self-care (01) ==
LOC: D.ER 02:28 → OBSVTIME 04:23 → D.M2 04:23
PROVIDERS: Family Medicine
DX: I25.119 Atherosclerotic heart disease of native coronary artery with unspecified angina pectoris (principal); I10 Essential (primary) hypertension

== ENCOUNTER → 2019-02-24 08:07 | Outpatient (CLI) | payer MEDICARE ==
[2018-01-31 10:27] VITALS: BMI 28.8
--- NOTE | ~2019-02-24 | ST ---
PATIENT:VEGA CASE MEDICAL RECORD: [id number] SEX: M LOCATION:[facility] ORDER #: ADMISSION DATE: 02/24/19 AGE OF PATIENT: 79 REFERRING PHYSICIAN: INTERPRETING PHYSICIAN: AMARILYS RODRIGUEZ MD DATE OF SERVICE: 02/24/2019 PROCEDURE: Nuclear stress test INDICATION: Angina and coronary artery disease, hypertension, shortness of breath. The patient was exercised on standard Lexiscan protocol with 33 mCi of sestamibi injected at peak stress, 11 mCi were used previously for rest images. FINDINGS: Gated SPECT reveals preserved ejection fraction at 70% with decreased thickening and brightening throughout the inferior segments. SPECT imaging Cardiolite was used as myocardium perfusion agent. There is fixed perfusion defect inferiorly and apically compatible with previous inferoapical myocardial infarction; however, there is reversible ischemia laterally. This includes the basal, mid and apical lateral segments. The degree of reversibility is mild. The amount of myocardium involved between the defects is large. OVERALL IMPRESSION: This is a high risk abnormal nuclear stress test, fixed perfusion defect inferiorly, reversible ischemia laterally suggestive of multivessel hemodynamically significant coronary artery disease. TRANSINT:[id number] Voice Confirmation ID: [id number] DOCUMENT ID: [id number] AMARILYS RODRIGUEZ MD CC: YAN BRUNER [id number] DICTATION DATE: 02/27/199 KITCHEN HAND: 02/28/19 0207 DEP CLI 02/24/[address] [address]
--- NOTE | ~2019-02-24 | EC ---
PATIENT:VEGA CASE DATE OF SERVICE: 02/24/19 SEX: M MEDICAL RECORD: [id number] DATE OF : 44 [facility] AGE OF PATIENT: 79 ADMISSION DATE: 02/24/19 REFERRING PHYSICIAN: INTERPRETING PHYSICIAN: AMARILYS VELOZ MD ECHOCARDIOGRAM REPORT ECHO CHARGES 4 ECHO COMPLETE Date: 02/24/19 CLINICAL DIAGNOSIS: CP/ANGINA/SOB/RICCI H/O CAD/HTN ECHOCARDIOGRAPHIC MEASUREMENTS (adult normal given) AC root (d.<3.7cm) 3.9 cm LV Septum d (<1.2 cm> 1.7 cm Valve Excursion 2.1 cm LV Septum (systole) 2.0 cm Left Atria (s.<4.0cm> 4.3 cm LVPW d(<1.2cm) 1.4 cm RV (d.<2.3cm) 2.1 cm LVPW (sytole) 2.0 cm LV diastole(<5.6CM) 7.0 cm MV E-F(>70mm/sec) cm LV systole 4.5 cm LVOT Diameter 2.0 cm MV exc.(>10mm) cm Est.ejection fraction (50-75%) % DOPPLER: LVIT cm/sec A 77.0 cm/sec E 93.0 cm/sec LA cm/sec RVSP 30.0 mmHg LVOT 85.0 cm/sec AOP1/2T m/s Asc. Ao 123 cm/sec RVOT 64.0 cm/sec RA cm/sec PA 101 cm/sec AV Gradient Peak 6.0 mmHg AV Mean 3.0 mmHg AV Area 2.0 cm MV Gradient Peak 4.9 mmHg MV Mean 2.1 mmHg MV Area cm COMMENTS: OP - HC [employer] Supervisor: 1 MALIA PEPITO Real Estate Processor: 1 Dr. Veloz TAPE# PACS Pericardial Effusion N DATE OF SERVICE: Echocardiogram FINDINGS: 1. Left ventricular chamber size is mildly dilated. Left ventricular systolic function is preserved at 55% to 60%. 2. Left atrium is enlarged at 4.3 cm. Right atrium and right ventricular chamber sizes are as well mildly dilated. 3. Valvular structures have normal structure and motion. ECHOCARDIOGRAM REPORT [id number] VEGA CASE 4. Doppler interrogation reveals mild mitral regurgitation, trace tricuspid regurgitation, no other valvular insufficiency or stenosis. Pulmonary systolic pressure is normal estimated at 30 mmHg. 5. No evidence of pericardial effusion or left ventricular thrombus. TRANSINT:[id number] Voice Confirmation ID: [id number] DOCUMENT ID: [id number] AMARILYS VELOZ MD CC: [id number] DICTATION DATE: 02/27/191654 CLAY ARTIST: 02/27/192201 DEP CLI 02/24/19 [facility] [address] [place] [id number]
== END | disposition home or self-care (01) ==
LOC: D.HCCECHO 08:07
PROVIDERS: ATTEND Internal Medicine Interventional Cardiology
DX: I25.10 Atherosclerotic heart disease of native coronary artery without angina pectoris (principal)

== ENCOUNTER 2019-03-09 10:56 | Emergency (ER) | payer OTHER ==
[~2019-03-09] VITALS: Ht 172.7 cm; Wt 94.1 kg
[2019-03-09 10:59] VITALS: Ht 172.7 cm; Wt 94.1 kg
[2019-03-09] MEDS ORDERED: FLOMAX0.4 MG PO (11:04)
[2019-03-09] MEDS ORDERED: MOBIC7.5 MG PO (11:05)
[2019-03-09 11:27] LABS: CALC OSMOLALITY 283 mosm/kg (275-300); CALCIUM 8.5 mg/dL (8.5-10.1); CARBON DIOXIDE 29.1 mmol/L (21.0-32.0); CHLORIDE - SERUM 108 mmol/L (98-107); POTASSIUM - SERUM 4.3 mmol/L (3.5-5.1); SODIUM 142 mmol/L (136-145); UREA NITROGEN 19 mg/dL (7-18); eGFR NON AFRICAN AMERICAN 77 mL/min (90-120)
[2019-03-09 11:29] LABS: GLUCOSE 85 mg/dL (74-106)
[2019-03-09 11:33] LABS: ALBUMIN 3.3 g/dL (3.4-5.0); ALKALINE PHOSPHATASE 154 U/L (30-120); ALT (SGPT) 19 U/L (10-68); BILIRUBIN - TOTAL 0.81 mg/dL (0.2-1.3); PROTEIN - SERUM 7.3 g/dL (6.4-8.2)
[2019-03-09 11:46] LABS: BASOPHILS 0.4 % (0-2); EOSINOPHILS 5.4 % (0-7); HEMOGLOBIN 14.7 g/dL (13.5-17.5); IMMATURE GRANULOCYTES 0.2 % (0-5); LYMPHOCYTES 22.4 % (15-50); MCV 91.5 fL (80.0-100.0); MEAN PLATELET VOLUME 9.1 fL (7.4-10.4); MONOCYTES 7.4 % (2-11); NEUTROPHILS 64.2 % (40-80); PLATELET COUNT 159 10x3/uL (130-400); RBC 4.59 10x6/uL (4.20-6.10); RDW 13.2 % (11.5-14.5); WBC 5.5 10x3/uL (4.8-10.8)
[2019-03-09 11:49] LABS: APTT 30.4 SECONDS (22.8-39.4); INR 1.06 (0.85-1.17); PROTIME 13.7 SECONDS (11.6-15.0)
[2019-03-09] MEDS ORDERED: HYDROCODON-ACE1 EAC7 PO (12:28)
[2019-03-09 13:27] VITALS: BP 138/85
== END 2019-03-09 13:29 | disposition home or self-care (01) ==
LOC: D.ER 10:56
PROVIDERS: Family Medicine
DX: S00.03XA Contusion of scalp, initial encounter (principal); W19.XXXA Unspecified fall, initial encounter; Y93.9 Activity, unspecified; Y92.9 Unspecified place or not applicable; S00.01XA Abrasion of scalp, initial encounter; S50.01XA Contusion of right elbow, initial encounter; E07.9 Disorder of thyroid, unspecified; I25.2 Old myocardial infarction